=== PATIENT | female | born 1960 | race Caucasian/White ===

== ENCOUNTER 2016-11-25 17:05 | Emergency (ER) | payer MEDICARE, OTHER ==
[~2016-11-25 17:05] MED LIST: TOPROL XL25 MG PO
[2016-11-25 19:42] LABS: HEMOGLOBIN 11.3 gm/dl (12.3-15.3); RED BLOOD COUNT 3.53 M/UL (4.00-5.10); WHITE BLOOD COUNT 5.4 K/UL (4.5-11.0)
== END 2016-11-25 20:20 | disposition left against medical advice (07) ==
LOC: ER1 17:05
PROVIDERS: Family Medicine
DX: R55 Syncope and collapse (principal); R51 Headache; M54.2 Cervicalgia; M54.9 Dorsalgia, unspecified; Z88.0 Allergy status to penicillin; G89.29 Other chronic pain; Z79.01 Long term (current) use of anticoagulants; Z79.899 Other long term (current) drug therapy
CPT/HCPCS: 36415; 70450; 71010; 72125; 72128; 72131; 80053; 82550; 82553; 83874; 84484; 85025; 93005; 99284

== ENCOUNTER 2017-02-04 15:19 | Emergency (ER) | payer MEDICARE, OTHER | END 2017-02-04 15:55 | disposition home or self-care (01) | LOC: ER1 15:19 | DX: M54.5 Low back pain (principal); G89.29 Other chronic pain | CPT/HCPCS: 96372; 99283; J1100; J1885 ==